=== PATIENT | male | born 1975 | race Two or more races ===

== ENCOUNTER 2024-11-15 10:54 | Outpatient (REF) | payer OTHER, SELFPAY ==
[2024-11-15 13:15] LABS: MANUAL DIFF FLAG NO
[2024-11-15 13:24] LABS: Appearance Urine Clear; Glucose Urine UA Negative (Negative); PH 5.5 (5.0-9.0); Specific Gravity - Urine 1.025 (1.005-1.025)
[2024-11-15 13:39] LABS: Hematocrit 43.1 % (42.0-52.0); Hemoglobin 14.7 g/dl (14.0-18.0); Imm Gran Abs Auto 0.01 X10*3/uL (0.00-0.03); Imm Gran Pct Auto 0.3 % (0.0-0.4); Lymphocytes Absolute Auto 1.1 X10*3/uL (1.2-4.9); Mean Corpuscular HGB Conc 34.1 g/dl (31.0-36.0); Mean Corpuscular Hemoglobin 30.5 pg (27.0-33.0); Mean Corpuscular Volume 89.4 fL (80.0-98.0); NRBC Abs Auto 0.000 X10*3/uL (0.0-0.012); NRBC Pct Auto 0.0 /100WBC (0.0-0.2); Platelet Count 222 X10*3/uL (160-400); Red Blood Count 4.82 X10*6/uL (4.60-5.80); White Blood Count 3.6 X10*3/uL (4.8-10.8)
[2024-11-15 18:58] LABS: Alanine Aminotransferase 26 U/L (0-40); Albumin Level 4.7 g/dL (3.5-5.0); Alkaline Phosphatase 47 U/L (39-117); Anion Gap 11 (12-20); Aspartate Amino Transferase 36 U/L (5-37); Blood Urea Nitrogen 15 mg/dL (9-16); Calcium 9.5 mg/dL (8.4-10.2); Carbon Dioxide 29 mmol/L (22-29); Chloride 102 mmol/L (96-108); Cholesterol 242 mg/dL (<200); Estimated Glomerular Filt Rate > 60; HDL Cholesterol 57 mg/dL (>40); Potassium 4.3 mmol/L (3.3-5.1); Sodium 138 mmol/L (135-145); Total Protein 7.1 g/dL (6.5-8.0); Triglycerides 115 mg/dL (<150)
[2024-11-15 19:31] LABS: Folate 13.2 ng/mL (> or = 4.0); Vitamin B12 396 pg/mL (200-900)
[2024-11-16 04:26] LABS: HBS Num1 0.14 mIU/mL (0-7.99); HBsAGNum1 0.29 S/CO (0.00-0.99); HIV Num 1 0.05 S/CO (0.00-0.99); Hepatitis B Surface Antigen Negative (Negative); ~Hepatitis B Surface Antibody NONREACTIVE (Nonreactive)
[2024-11-23 15:23] LABS: VITAMIN D (1,25 OH) D3 39 pg/mL; Vit D (1,25-Dihydroxy) Total 39 pg/mL (18-72); Vitamin D (1,25 OH) D2 <8 pg/mL
== END 2024-11-15 10:55 | disposition home or self-care (01) ==
LOC: HO.HKASLDS 10:54
PROVIDERS: Visit Provider Student in an Organized Health Care Education/Training Program
DX: Z76.89 Persons encountering health services in other specified circumstances (principal); Z13.9 Encounter for screening, unspecified; Z13.1 Encounter for screening for diabetes mellitus; Z13.6 Encounter for screening for cardiovascular disorders; Z13.220 Encounter for screening for lipoid disorders; Z13.31 Encounter for screening for depression; Z11.4 Encounter for screening for human immunodeficiency virus [HIV]; Z11.3 Encounter for screening for infections with a predominantly sexual mode of transmission; Z71.9 Counseling, unspecified; Z31.9 Encounter for procreative management, unspecified; Z12.10 Encounter for screening for malignant neoplasm of intestinal tract, unspecified
CPT/HCPCS: 36415; 80053; 80061; 81003; 82607; 82652; 82746; 83036; 85025; 86706; 87340; 87389

== ENCOUNTER 2024-11-15 10:54 | Outpatient (AMB) | payer OTHER, SELFPAY ==
--- NOTE | 2024-11-15 11:05 | MHC.PC.OV ---
Vital Signs 11/15/24 11:09 Height 5 ft 4.29 in Weight 156 lb 6 oz BMI 26.6 BP 112/74 Blood Pressure Location Lt brachial Position Sitting Respiration 16 Pulse 95 Pulse Source Pulse Oximeter Temp 98.2 F Temp Source Oral Pulse Oximetry (%) 97 Oxygen Delivery Method Room Air Intake Visit Reasons: [employer]-Bipolar,Medications Intake Note: physical and lab. Gambreler Required: No Accompanied by: Self / Same As Patient Allergies No Known Allergies Allergy (Verified 11/15/24 11:05) Tobacco use date assessed: 11/15/24 Dental Screening Dental Screen Date: 11/15/24 Did you have a dental visit in the last 12 months?: Yes Did you have a dental problem in the last 6 months where you did not have access to dental care?: No Was dental information given to patient?: Patient has dentist HPI HPI Comments History of Present Illness Details History of Present Illness The patient is a 49-year-old male presenting for a physical examination and laboratory workup as requested by his psychiatrist. Bipolar disorder: - The patient has been diagnosed with bipolar disorder, primarily experiencing manic episodes rather than depressive ones. - He has been stable on Seroquel and lamotrigine since 2012. Hyperlipidemia: - The patient is on Seroquel, which necessitates monitoring of cholesterol levels due to potential side effects. Patient has never had a baseline ECG performed start Seroquel at 2012 we will order baseline ECG Review of Systems - Psychiatric: Reports stability with current medication regimen. Denies depressive episodes. - Cardiovascular: Denies chest pain or palpitations. - Respiratory: Denies dyspnea or cough. - Gastrointestinal: Denies abdominal pain or changes in bowel habits. 10-point ROS reviewed and negative except as noted in HPI Past Medical History - Bipolar disorder, stable on Seroquel and lamotrigine since 2012 Health Maintenance - Colon cancer screening with Cologuard discussed as an alternative to colonoscopy. - Regular exercise regimen including weightlifting, boxing, judo, and mountain biking. Physical Exam General: Well-appearing, in no acute distress. Vital signs: Within normal limits. HEENT: Normocephalic, atraumatic. PERRLA, EOMI. Conjunctiva clear, sclera anicteric. Oropharynx clear, mucous membranes moist. TMs intact bilaterally. Neck: Supple, no lymphadenopathy, no thyromegaly, no JVD or carotid bruits. Cardiovascular: RRR, normal S1/S2, no murmurs, rubs, or gallops. Peripheral pulses 2+ and symmetric. No edema. Respiratory: Lungs clear to auscultation bilaterally, no wheezes, rales, or rhonchi. Normal effort. Abdomen: Soft, non-tender, non-distended. Normoactive bowel sounds. No hepatosplenomegaly, no masses. MSK: Full range of motion, no joint swelling or deformity. Normal gait. Skin: Warm, dry, intact. No rashes, lesions, or pallor. Neuro: Alert and oriented x3. Cranial nerves II-XII intact. Strength 5/5 throughout. Sensation intact. Reflexes 2+ symmetric. Normal coordination and gait. Psych: Appropriate mood and affect. Normal judgment and insight. Plan 1. Bipolar Disorder - Continue current medication regimen of Seroquel and lamotrigine. 2. Hyperlipidemia - Order lipid panel to monitor cholesterol levels due to Seroquel use. 3. Encounter for colon cancer screening Discussion Notes During the visit, I discussed the importance of regular monitoring of cholesterol levels due to the patient's use of Seroquel, which can affect lipid levels. We also talked about the option of using Cologuard for colon cancer screening as an alternative to colonoscopy. I emphasized the need for regular physical exams and lab work to monitor his health status, especially given his psychiatric medication regimen. Patient was informed and verbally consented to the use of an ambient scribe for clinic note documentation during this visit. Patient Instructions - Continue taking Seroquel and lamotrigine as prescribed. - Schedule and complete the recommended lab tests, including lipid panel and Cologuard. - Maintain regular physical activity and a healthy diet. [facility] Medical History (Updated 11/15/24 @ 11:26 by Domenic Malhotra MD) Bipolar 1 disorder Family History (Updated 11/15/24 @ 11:14 by Carmen Allen MA) Father Bipolar 1 disorder Mother No problems noted. Social History (Updated 11/15/24 @ 11:06 by Carmen Allen MA) Housing: House Alcohol intake: current Alcohol intake frequency: holidays/special occasions only Patient Tobacco Use Status: Never used Tobacco service: No Current occupational status: employed Cognitive needs: No Hearing needs: No Vision needs: No Questionnaire PHQ-9 Over the last 2 weeks, how often have you been bothered by any of the following problems? 1. Little interest or pleasure in doing things: not at all 2. Feeling down, depressed, or hopeless: not at all 3. Trouble falling or staying asleep, or sleeping too much: not at all 4. Feeling tired or having little energy: not at all 5. Poor appetite or overeating: not at all 6. Feeling bad about yourself - or that you are a failure or have let yourself or your family down: not at all 7. Trouble concentrating on things, such as reading the newspaper or watching television: not at all 8. Moving or speaking so slowly that other people could have noticed. Or the opposite - being so fidgety or restless that you have been moving around a lot more than usual: not at all 9. Thoughts that you would be better off or of hurting yourself in some way: not at all Total score: 0 Depression Screening Interpretation: Negative Depression Screening Done: Yes Source: Developed by Drs. Lopez Silva, Jackie Godinez, Emerson Shields and colleagues, with an educational harsh from [employer]. Thrive Questionnaire Date Thrive assessed: 11/15/24 I am a: Patient What is your living situation today?: I have a steady place to live Within the past 12 months, did the food you bought not last and you didn't have the money to get more?: Never true Within the past 12 months, did you worry whether your food would run out before you got money to buy more?: Never true Do you have trouble paying for medicines?: No Do you have trouble getting transportation to medical appointments?: No Do you have trouble paying your heating and electricity bill?: No Do you have trouble taking care of your child, family member or friend?: No Do you have trouble with day-to-day activities such as bathing, preparing meals, shopping, managing finances, etc.?: No Are you currently unemployed and looking for a job?: No Are you interested in more education?: No Please select the resources that you would like help with: None Currently or been in a relationship where the following occur: No concerns reported THRIVE Score: 0 AUDIT C Alcohol Use Questionnaire (AUDIT-C) 1. How often do you have a drink containing alcohol?: Monthly or less 2. How many drinks containing alcohol do you have on a typical day when you are drinking?: 1 or 2 3. How often do you have six or more drinks on one occasion?: Never Total Score: 1 NEY-7 AMB Questionnaire NEY-7 Date NEY - 7 assessed: 11/15/24 Feeling nervous, anxious, or on edge: 0 = Not at all Not being able to stop or control worryin = Not at all Worrying too much about different things: 0 = Not at all Trouble relaxin = Not at all Being so restless that it is hard to sit still: 0 = Not at all Becoming easily annoyed or irritable: 0 = Not at all Feeling afraid as if something awful might happen: 0 = Not at all Total NEY-7 score (0-4 normal; 5-9 mild; 10-14 moderate; 15-21 severe): 0 Source: Developed by Drs. Lopez Silva, Jackie Godinez, Emerson Shields and colleagues, with an educational harsh from [employer]. Physical exam (Primary Care) Vital Signs: Last Vital Signs Resp 16 11/15/24 11:09 BMI result Body Mass Index 26.6 Tobacco/Smoking Status: Tobacco use Status Tobacco use date assessed 11/15/24 11/15/24 11:07 Patient Tobacco Use Status Never used Tobacco 11/15/24 11:07 PHQ-9: PHQ-9 Score PHQ-9: Total score 0 11/15/24 11:07 Depression Screening Interpretation: Negative Thrive Assessment: Date of Thrive Assessment Date Thrive assessed 11/15/24 11/15/24 11:07 Currently or been in a relationship where the following occur: No concerns reported Coding Level of Care Code New Pt Level 3 (45562) Diagnoses Encounter to establish care Z76.89 Encounter for screening, unspecified Z13.9 Screening for diabetes mellitus Z13.1 Screening for hypertension Z13.6 Screening for lipoid disorders Z13.220 Screening for depression Z13.31 Screening for HIV (human immunodeficiency virus) Z11.4 Routine screening for STI (sexually transmitted infection) Z11.3 Counseling, unspecified Z71.9 Bipolar 1 disorder F31.9 Encounter for screening for malignant neoplasm of intestinal tract Z12.10 Assessment & Plan Assessment & Plan (1) Encounter to establish care: Code(s): Z76.89 - Persons encountering health services in other specified circumstances (2) Encounter for screening, unspecified: Code(s): Z13.9 - Encounter for screening, unspecified (3) Screening for diabetes mellitus: Code(s): Z13.1 - Encounter for screening for diabetes mellitus (4) Screening for hypertension: Code(s): Z13.6 - Encounter for screening for cardiovascular disorders (5) Screening for lipoid disorders: Code(s): Z13.220 - Encounter for screening for lipoid disorders (6) Screening for depression: Code(s): Z13.31 - Encounter for screening for depression (7) Screening for HIV (human immunodeficiency virus): Code(s): Z11.4 - Encounter for screening for human immunodeficiency virus [HIV] (8) Routine screening for STI (sexually transmitted infection): Code(s): Z11.3 - Encounter for screening for infections with a predominantly sexual mode of transmission (9) Counseling, unspecified: Code(s): Z71.9 - Counseling, unspecified (10) Bipolar 1 disorder: Code(s): F31.9 - Bipolar disorder, unspecified Category: Medical (11) Encounter for screening for malignant neoplasm of intestinal tract: Code(s): Z12.10 - Encounter for screening for malignant neoplasm of intestinal tract, unspecified Plan Orders: Orders Complete Blood Count Auto Diff Today Z13.9 - Encounter for screening, unspecified, Z76.89 - Persons encountering health services in other specified circumstances Comprehensive Met. Panel Today Z13.9 - Encounter for screening, unspecified, Z76.89 - Persons encountering health services in other specified circumstances Hemoglobin A1c Today Z13.9 - Encounter for screening, unspecified, Z76.89 - Persons encountering health services in other specified circumstances Hepatitis B Surface Antibody Today Z13.9 - Encounter for screening, unspecified, Z76.89 - Persons encountering health services in other specified circumstances HIV Ab/Ag Today Z13.9 - Encounter for screening, unspecified, Z76.89 - Persons encountering health services in other specified circumstances ECG 12 lead EKG Today Z13.9 - Encounter for screening, unspecified, Z76.89 - Persons encountering health services in other specified circumstances Hepatitis B Surface Antigen Today Z13.9 - Encounter for screening, unspecified, Z76.89 - Persons encountering health services in other specified circumstances Lipid Panel Today Z13.9 - Encounter for screening, unspecified, Z76.89 - Persons encountering health services in other specified circumstances UA CC w/rflx Micro + Cult Today Z13.9 - Encounter for screening, unspecified, Z76.89 - Persons encountering health services in other specified circumstances Vitamin B12 and Folate Today Z13.9 - Encounter for screening, unspecified, Z76.89 - Persons encountering health services in other specified circumstances Vitamin D 1,25 dihydroxy Today Z13.9 - Encounter for screening, unspecified, Z76.89 - Persons encountering health services in other specified circumstances Referrals Cologuard Test Z12.11 - Encounter for screening for malignant neoplasm of colon, Z12.12 - Encounter for screening for malignant neoplasm of rectum, Z13.9 - Encounter for screening, unspecified, Z76.89 - Persons encountering health services in other specified circumstances
[2024-11-15 11:09] VITALS: BP 112/74; PULSE 95; RESP 16; TEMP 36.8; O2SAT 97; BMI 26.6
== END 2024-11-15 11:28 | disposition home or self-care (01) ==
LOC: HO.HMCFMS 10:55
PROVIDERS: PCP Student in an Organized Health Care Education/Training Program; Visit Provider Student in an Organized Health Care Education/Training Program
DX: Z00.00 Encounter for general adult medical examination without abnormal findings (principal); F31.9 Bipolar disorder, unspecified

== ENCOUNTER 2024-11-29 16:03 | Outpatient (AMB) | payer OTHER, SELFPAY ==
[2024-11-29 16:15] VITALS: BP 132/79; PULSE 77; RESP 16; TEMP 36.6; O2SAT 97; BMI 26.4
--- NOTE | 2024-11-29 16:15 | A.OFFPC_ITS ---
Vital Signs 11/29/24 16:15 Height 5 ft 4.29 in Weight 155 lb 4 oz BMI 26.4 BP 132/79 Blood Pressure Location Rt brachial Position Sitting Respiration 16 Pulse 77 Pulse Source Pulse Oximeter Temp 97.9 F Temp Source Oral Pulse Oximetry (%) 97 Oxygen Delivery Method Room Air Intake Visit Reasons: 2 wk f/u Intake Note: physical and lab. Human Resources Executive Required: No Accompanied by: Self / Same As Patient Allergies No Known Allergies Allergy (Verified 11/29/24 16:18) Tobacco use date assessed: 11/15/24 Dental Screening Dental Screen Date: 11/15/24 Did you have a dental visit in the last 12 months?: Yes Did you have a dental problem in the last 6 months where you did not have access to dental care?: No Was dental information given to patient?: Patient has dentist HPI HPI Comments History of Present Illness Details History of Present Illness The patient is a 49-year-old male presenting for follow-up on lab results and management of chronic conditions. Bipolar disorder: - The patient has a history of bipolar d isorder, which was a reason for the referral to initiate care with the family medicine provider. - currently stable on medication pending ECG for QTC prolongation Hyperlipidemia: - The patient has elevated total cholest mariann at 242 mg/dL and LDL cholesterol at 162 mg/dL, which are above the recommended levels. - The patient is on quetiapine, which ma y contribute to elevated lipid levels. - Dietary habits include consumption of chicken and avoidance of red meat, eggs, and cheese to manage cholesterol levels. Review of Systems 10-point ROS reviewed and negative excep t as noted in HPI Past Medical History - Bipolar disorder Health Maintenance - Colon cancer screening with stool test completed - Referral to anodize machine operator for dietary m anagement of hyperlipidemia Physical Exam General: Well-appearing, in no acute distress. Vital signs: Within normal limits. HEENT: Normocephalic, atraumatic. PERRLA, EOMI. Conjunctiva clear, sclera anicteric. Oropharynx clear, mucous membranes moist. TMs intact bilaterally. Neck: Supple, no lymphadenopathy, no thyromegaly, no JVD or carotid bruits. Cardiovascular: RRR, normal S1/S2, no murmurs, rubs, or gallops. Peripheral pulses 2+ and symmetric. No edema. Respiratory: Lungs clear to auscultation bilaterally, no wheezes, rales, or rhonchi. Normal effort. Abdomen: Soft, non-tender, non-distended. Normoactive bowel sounds. No hepatosplenomegaly, no masses. MSK: Full range of motion, no joint swelling or deformity. Normal gait. Skin: Warm, dry, intact. No rashes, lesions, or pallor. Neuro: Alert and oriented x3. Cranial nerves II-XII intact. Strength 5/5 throughout. Sensation intact. Reflexes 2+ symmetric. Normal coordination and gait. Psych: Appropriate mood and affect. Normal judgment and insight. Plan 1. Bipolar Disorder - Continue current psychiatric managemen t and medications as prescribed by the psychiatrist. 2. Hyperlipidemia - Monitor lipid levels and repeat testin g in six months. - Referral to a anodize machine operator for dietary counseling to manage cholesterol levels. - Discussed dietary modifications includ ing reducing intake of high-fat meats and avoiding fried foods. Discussion Notes During the visit, we reviewed the patient's lab results, noting elevated cholesterol levels likely influenced by quetiapine use. I recommended dietary changes and referred the patient to a anodize machine operator. We will repeat lipid testing in six months and continue psychiatric management for bipolar disorder. Patient was informed and verbally consented to the use of an ambient scribefor clinic note documentation during this visit. Patient Instructions - Follow up with a anodize machine operator for diet yobany advice. - Monitor and reduce intake of high-fat foods, especially fried items. - Continue current psychiatric medicatio ns as prescribed. - Return for follow-up in six months for repeat lipid testing. Total time spent caring for the patient today was 30 minutes. This includes time spent before the visit reviewing the chart, time spent documenting, and time spent reviewing laboratory results, diagnostic imaging, medications, performing a medically necessary evaluation, counseling on diagnoses, care coordination. [facility] Medical History (Updated 11/15/24 @ 11:26 by Domenic Malhotra MD) Bipolar 1 disorder Family History Father Bipolar 1 disorder Mother No problems noted. Social History Housing: House Alcohol intake: current Alcohol intake frequency: holidays/special occasions only Patient Tobacco Use Status: Never used Tobacco service: No Current occupational status: employed Cognitive needs: No Hearing needs: No Vision needs: No Questionnaire PHQ-9 Over the last 2 weeks, how often have you been bothered by any of the following problems? 1. Little interest or pleasure in doing things: not at all 2. Feeling down, depressed, or hopeless: not at all 3. Trouble falling or staying asleep, or sleeping too much: not at all 4. Feeling tired or having little energy: not at all 5. Poor appetite or overeating: not at all 6. Feeling bad about yourself - or that you are a failure or have let yourself or your family down: not at all 7. Trouble concentrating on things, such as reading the newspaper or watching television: not at all 8. Moving or speaking so slowly that other people could have noticed. Or the opposite - being so fidgety or restless that you have been moving around a lot more than usual: not at all 9. Thoughts that you would be better off or of hurting yourself in some way: not at all Total score: 0 Depression Screening Interpretation: Negative Depression Screening Done: Yes Source: Developed by Drs. Lopez Silva, Jackie Godinez, Emerson Shields and colleagues, with an educational harsh from [employer]. Thrive Questionnaire Date Thrive assessed: 11/08/24 I am a: Patient What is your living situation today?: I have a steady place to live Within the past 12 months, did the food you bought not last and you didn't have the money to get more?: Never true Within the past 12 months, did you worry whether your food would run out before you got money to buy more?: Never true Do you have trouble paying for medicines?: No Do you have trouble getting transportation to medical appointments?: No Do you have trouble paying your heating and electricity bill?: No Do you have trouble taking care of your child, family member or friend?: No Do you have trouble with day-to-day activities such as bathing, preparing meals, shopping, managing finances, etc.?: No Are you currently unemployed and looking for a job?: No Are you interested in more education?: No Please select the resources that you would like help with: None Currently or been in a relationship where the following occur: No concerns reported THRIVE Score: 0 AUDIT C Alcohol Use Questionnaire (AUDIT-C) 1. How often do you have a drink containing alcohol?: Monthly or less 2. How many drinks containing alcohol do you have on a typical day when you are drinking?: 1 or 2 3. How often do you have six or more drinks on one occasion?: Never Total Score: 1 NEY-7 AMB Questionnaire NEY-7 Date NEY - 7 assessed: 11/15/24 Feeling nervous, anxious, or on edge: 0 = Not at all Not being able to stop or control worryin = Not at all Worrying too much about different things: 0 = Not at all Trouble relaxin = Not at all Being so restless that it is hard to sit still: 0 = Not at all Becoming easily annoyed or irritable: 0 = Not at all Feeling afraid as if something awful might happen: 0 = Not at all Total NEY-7 score (0-4 normal; 5-9 mild; 10-14 moderate; 15-21 severe): 0 Source: Developed by Drs. Lopez Silva, Jackie Godinez, Emerson Shields and colleagues, with an educational harsh from [employer]. Physical exam (Primary Care) Vital Signs: Last Vital Signs Temp 97.9 F 11/29/24 16:15 Pulse 77 11/29/24 16:15 Resp 16 11/29/24 16:15 BP 132/79 11/29/24 16:15 Pulse Ox 97 11/29/24 16:15 Oxygen Delivery Method Room Air 11/29/24 16:15 BMI result Body Mass Index 26.4 Tobacco/Smoking Status: Tobacco use Status Tobacco use date assessed 11/15/24 11/29/24 16:20 Patient Tobacco Use Status Never used Tobacco 11/29/24 16:20 PHQ-9: PHQ-9 Score PHQ-9: Total score 0 11/29/24 16:20 Depression Screening Interpretation: Negative Thrive Assessment: Date of Thrive Assessment Date Thrive assessed 11/08/24 11/29/24 16:20 Currently or been in a relationship where the following occur: No concerns reported Coding Level of Care Code Est Pt Level 4 (58228) Diagnoses Bipolar 1 disorder F31.9 Hyperlipidemia E78.5 Assessment & Plan Assessment & Plan (1) Bipolar 1 disorder: Code(s): F31.9 - Bipolar disorder, unspecified Category: Medical (2) Hyperlipidemia: Code(s): E78.5 - Hyperlipidemia, unspecified Plan Orders: Referrals Nurse Navigator Referral E78.5 - Hyperlipidemia, unspecified
== END 2024-11-29 16:39 | disposition home or self-care (01) ==
LOC: HO.HMCFMS 16:04
PROVIDERS: Visit Provider Student in an Organized Health Care Education/Training Program
DX: F31.9 Bipolar disorder, unspecified (principal); E78.5 Hyperlipidemia, unspecified

== ENCOUNTER 2024-12-26 11:04 | Outpatient (AMB) | payer OTHER, SELFPAY ==
--- NOTE | 2024-12-26 11:07 | A.OFFVIS_ITS ---
Intake Visit Reasons: Initial Nutrition Assessment Allergies No Known Allergies Allergy (Verified 11/29/24 16:18) Nutrition Presentation Details: Does report high cholesterol between age 11-12 due to poor diet but improvements were made at that time. Had been having several eggs each morning but has since stopped that which resulted in some fat loss. Denies family history of heart disease. This was the first time blood work had been done in many years. Drinks 6-8 cans seltzer per day. Is a very active person. Reason for consult: other (Elevated LDL) GI symptoms: reports other (none) Food allergies/aversions: Yes (milk products-gets acne, avoids all forms) Smoking assessment: Other (stopped cannabis, uses trazadone to sleep) Alcohol assessment: Reviewed (very infrequent-near none as sleep had been interrupted ) Physical activity assessment: Reviewed Diet Assmnt Details: Minimal processed foods. Believes to have less than 10% body fat. Highest weight (pounds): 160 (several months ago) Goal weight: 150 (now here) Current diet assessment: Reviewed Dietary counseling: Mediterranean Who buys your food: self and spouse Who prepares/cooks your food: self and spouse Meal frequency: regular: breakfast (oatmeal or Martiniquais muffin with PB, coffee, honey and water), lunch (fruit, honey or rice & protein), dinner (chicken, fish, rice, vegetable (spinach, brocoli, carrots)) and snacks (apple, banana) Lifestyle Eating out: rarely or never Reads food labels: Yes Family support: Yes Exercise: Yes (works out 5 days/week-strength and cardio) Food frequency: Fruit: daily, Vegetables: daily, Grains/pasta/breads/cereal (carbs): daily, Meats/poultry/fish (protein): daily, Meat substitu joy/nuts/seeds/legumes: occasionally, Processed foods/meats: occasionally, Restaurants/fast foods: occasionally, Desserts/sweets: occasionally, Fats/oils: daily, Water: daily, Soda: daily (seltzer-unsweetened), Coffee: daily and Alcohol: never BS Monitoring Most Recent Diabetes Results: Cholesterol, (<200) 242 mg/dL H 11/15/24 HDL Cholesterol, (>40) 57 mg/dL 11/15/24 Triglycerides, (<150) 115 mg/dL 11/15/24 Creatinine, (0.5-1.4) 0.93 mg/dL 11/15/24 AST, (5-37) 36 U/L 11/15/24 ALT, (0-40) 26 U/L 11/15/24 Assessment Assessment details: Overall, pt leads a very healthy lifestyle. He is active and limits ultraprocessed foods. Sources of added sugar discussed in light of honey consumption. Pt will benefit from increasing fiber intake via nonstarchy vegetables, beans, lugmes and whole grains but overall it is not likely that diet and lifestyle are the reason for elevated cholesterol levels. Seroquel noted. Nutrition recommendation: RD nutrition education [id number] Equation Calculated Activity Level: Moderate Activity Diagnosis Nutrition problem #1: altered nutrition labs As related to (etiology) #1: other (question if seroquel is the culprit) As evidenced by (sign/symptom) #1: abnormal serum lipids Monitoring/Goals Nutrition problem monitoring: total energy intake Nutrition goal/outcome: list 3 CHO foods and list 3 high fiber foods Outcome progress: progressing Learning/Education Readiness to learn: excellent Stages of change: action Educational materials provided: Yes (snack guide, planning meals) Date of nutrition screenin12/26/24 Follow up Follow-up frequency: PRN Time Outcome assessment time: 45 minutes [facility] Medical History (Updated 11/15/24 @ 11:26 by Domenic Malhotra MD) Bipolar 1 disorder Family History Father Bipolar 1 disorder Mother No problems noted. Social History Housing: House Alcohol intake: current Alcohol intake frequency: holidays/special occasions only Patient Tobacco Use Status: Never used Tobacco service: No Current occupational status: employed Cognitive needs: No Hearing needs: No Vision needs: No Telehealth Telehealth Telehealth Platform: Other (please specify) (Zoom) Location of provider rendering services: practice address Location of patient: address on file Patient Identification confirmed using: Name, : Yes Telehealth method: video Patient verbally consented to treatment: Yes Patient informed of any privacy concerns related to visit: Yes Minutes spent on Phone/Video with Pt.: 45 Assessment & Plan Assessment & Plan (1) Hyperlipidemia: Code(s): E78.5 - Hyperlipidemia, unspecified Plan 1. increase nonstarchy vegetable consumption 2 monitor sources of added sugar Coding Level of Care Code Nutr Indiv Intake (18329) Diagnoses Hyperlipidemia E78.5
== END 2024-12-26 14:08 | disposition home or self-care (01) ==
LOC: HO.HMCCN 11:04
PROVIDERS: PCP Student in an Organized Health Care Education/Training Program; Visit Provider Dietitian, Registered
DX: E78.5 Hyperlipidemia, unspecified (principal)

== ENCOUNTER → 2024-12-26 11:04 | Outpatient (BNVA) | payer OTHER, SELFPAY | PROVIDERS: PCP Student in an Organized Health Care Education/Training Program; Visit Provider Dietitian, Registered | DX: E78.5 Hyperlipidemia, unspecified (principal); Z79.899 Other long term (current) drug therapy | CPT/HCPCS: 97802 ==